=== PATIENT | female | born 1945 | race Caucasian/White ===

== ENCOUNTER 2018-03-08 14:10 | Inpatient (IN) | payer MEDICARE, BC ==
[2018-03-08 15:03] LABS: ADD MAN DIFF? NO
[2018-03-08 15:12] LABS: BASOPHIL # 0.1 10^3/ul (0.0-0.1); BASOPHILS % 1.1 % (0.0-2.0); EOSINOPHILS # 0.1 10^3/ul (0.0-0.5); EOSINOPHILS % 1.2 % (0.0-7.0); HEMATOCRIT 38.3 % (37.0-47.0); HEMOGLOBIN 12.2 g/dl (12.0-16.0); LYMPHOCYTES % 12.5 % (15.0-51.0); MEAN CORPUSCULAR HEMOGLOBIN 29.8 pg (29.0-33.0); MEAN CORPUSCULAR HGB CONC 31.9 g/dl (32.0-37.0); MEAN CORPUSCULAR VOLUME 93.4 fl (82.0-101.0); MEAN PLATELET VOLUME 9.2 fl (7.4-10.4); MONOCYTE # 0.6 10^3/ul (0.3-0.9); MONOCYTES % 6.6 % (0.0-11.0); NEUTROPHIL # 6.5 10^3/ul (1.6-7.5); NEUTROPHILS % 78.4 % (39.0-77.0); PLATELET COUNT 269 10^3/UL (140-415); RED CELL DISTRIBUTION WIDTH 19.4 % (11.5-14.5)
[2018-03-08 15:12] LABS: WHITE BLOOD COUNT 8.3 10^3/ul (4.8-10.8)
[2018-03-08 15:28] LABS: INR 0.85; PARTIAL THROMBOPLASTIN TIME 31.4 Sec (23.0-35.0); PROTIME 11.7 Sec (11.9-14.9); PT RATIO 0.9
[2018-03-08 15:33] LABS: ALANINE AMINOTRANSFERASE < 6 IU/L (13-69); ALBUMIN 4.2 g/dl (3.3-4.9); ALBUMIN/GLOBULIN RATIO 1.31; ALKALINE PHOSPHATASE 59 IU/L (42-121); ANION GAP 16 (5-13); ASPARTATE AMINO TRANSFERASE 22 IU/L (15-46); BILIRUBIN,INDIRECT 0.5 mg/dl (0-1.1); BILIRUBIN,TOTAL 0.5 mg/dl (0.2-1.3); BLOOD UREA NITROGEN 25 mg/dl (7-20); CALCIUM 9.1 mg/dl (8.4-10.2); CARBON DIOXIDE 27 mmol/L (21-31); CHLORIDE 98 mmol/L (97-110); CREATININE 6.39 mg/dl (0.44-1.00); GLUCOSE 255 mg/dl (70-220); POTASSIUM 4.6 mmol/L (3.5-5.1); SODIUM 141 mmol/L (135-144); TOTAL PROTEIN 7.4 g/dl (6.1-8.1)
[2018-03-08 15:44] LABS: TROPONIN-I < 0.012 ng/ml (0.000-0.120)
[2018-03-08] MEDS ORDERED: ACETAMINOPHEN 325 MG TAB PO (16:00)
[2018-03-08] MEDS ORDERED: ONDANSETRON 4 MG INJ IV ×2 (16:00→17:00)
[2018-03-08] MEDS ORDERED: ZOLPIDEM 5 MG TAB PO (17:00)
[2018-03-08] MEDS ORDERED: NACL 0.9% 3 ML SYG IV (17:00)
[2018-03-08] MEDS ORDERED: GLUCAGON 1 MG INJ IM (17:00)
[2018-03-08] MEDS ORDERED: DOCUSATE SODIUM 100 MG CAP PO (17:00)
[2018-03-08] MEDS ORDERED: GLUCOSE GEL 15 GRAM TUBE PO ×2 (17:00)
[2018-03-08] MEDS ORDERED: HYDROCODONE/APAP (5/325) TAB PO (17:00)
[2018-03-08] MEDS ORDERED: morphine 2 MG INJ IV (17:00)
[2018-03-08] MEDS ORDERED: DEXTROSE 50% 50 ML SYRINGE IV ×2 (17:00)
[2018-03-08] MEDS ORDERED: ALBUTEROL/IPRATROPIUM (NEB) 3 ML AMP HHN (17:30)
[2018-03-08] MEDS: INSULIN ASPART [NOVOLOG] 3 ML PEN SC ×2 (17:54→21:00)
[2018-03-08 18:12] LABS: HEPATITIS B SURFACE ANTIGEN NEGATIVE (NEGATIVE)
[2018-03-08 18:30] LABS: HEPATITIS B SURFACE ANTIBODY POSITIVE (NEGATIVE)
[2018-03-08] MEDS: LIDOCAINE 5% 35 GM OINT TOP (20:46)
[2018-03-08] MEDS: INSULIN GLARGINE [LANTus] (100 UNITS/ML) SYG SC (20:47)
[2018-03-08] MEDS: ATORVASTATIN 80 MG TAB PO (21:00)
[2018-03-09] MEDS: ACCU-CHEK XX (01:56)
[2018-03-09 05:25] LABS: ADD MAN DIFF? NO
[2018-03-09 05:39] LABS: WHITE BLOOD COUNT 7.6 10^3/ul (4.8-10.8)
[2018-03-09 05:39] LABS: BASOPHIL # 0.1 10^3/ul (0.0-0.1); BASOPHILS % 0.8 % (0.0-2.0); EOSINOPHILS # 0.1 10^3/ul (0.0-0.5); EOSINOPHILS % 1.7 % (0.0-7.0); HEMATOCRIT 34.1 % (37.0-47.0); LYMPHOCYTES # 1.2 10^3/ul (0.8-2.9); LYMPHOCYTES % 15.8 % (15.0-51.0); MEAN CORPUSCULAR HEMOGLOBIN 29.9 pg (29.0-33.0); MEAN CORPUSCULAR HGB CONC 32.3 g/dl (32.0-37.0); MEAN CORPUSCULAR VOLUME 92.7 fl (82.0-101.0); MEAN PLATELET VOLUME 9.6 fl (7.4-10.4); MONOCYTE # 0.7 10^3/ul (0.3-0.9); NEUTROPHIL # 5.5 10^3/ul (1.6-7.5); NEUTROPHILS % 72.4 % (39.0-77.0); PLATELET COUNT 254 10^3/UL (140-415); RED BLOOD COUNT 3.68 10^6/ul (4.20-5.40); RED CELL DISTRIBUTION WIDTH 18.7 % (11.5-14.5)
[2018-03-09 06:04] LABS: ANION GAP 13 (5-13); BLOOD UREA NITROGEN 8 mg/dl (7-20); CALCIUM 8.2 mg/dl (8.4-10.2); CARBON DIOXIDE 31 mmol/L (21-31); CHLORIDE 98 mmol/L (97-110); CREATININE 2.94 mg/dl (0.44-1.00); GLUCOSE 112 mg/dl (70-220); MAGNESIUM 1.9 mg/dl (1.7-2.5); POTASSIUM 4.1 mmol/L (3.5-5.1); SODIUM 142 mmol/L (135-144)
[2018-03-09 07:47] LABS: HEMOGLOBIN A1C 6.9 % (0-5.9)
[2018-03-09] MEDS: INSULIN ASPART [NOVOLOG] 3 ML PEN SC ×4 (08:00→20:52)
[2018-03-09] MEDS: ASPIRIN (EC) 81 MG TAB PO (08:40)
[2018-03-09] MEDS: ATENOLOL 50 MG TAB PO (08:40)
[2018-03-09] MEDS: LOSARTAN 50 MG TAB PO (08:40)
[2018-03-09] MEDS: AMLODIPINE 10 MG TAB PO (08:41)
[2018-03-09] MEDS: ACETAMINOPHEN 325 MG TAB PO (19:51)
[2018-03-09] MEDS: ATORVASTATIN 80 MG TAB PO (21:00)
[2018-03-09] MEDS: INSULIN GLARGINE [LANTus] (100 UNITS/ML) SYG SC (21:02)
[2018-03-10] MEDS: ACCU-CHEK XX (01:21)
[2018-03-10 05:46] LABS: WHITE BLOOD COUNT 9.3 10^3/ul (4.8-10.8)
[2018-03-10 05:46] LABS: ADD MAN DIFF? NO; BASOPHIL # 0.1 10^3/ul (0.0-0.1); BASOPHILS % 0.6 % (0.0-2.0); EOSINOPHILS # 0.2 10^3/ul (0.0-0.5); EOSINOPHILS % 2.4 % (0.0-7.0); HEMATOCRIT 36.9 % (37.0-47.0); HEMOGLOBIN 11.9 g/dl (12.0-16.0); LYMPHOCYTES # 1.1 10^3/ul (0.8-2.9); LYMPHOCYTES % 11.8 % (15.0-51.0); MEAN CORPUSCULAR HEMOGLOBIN 29.8 pg (29.0-33.0); MEAN CORPUSCULAR HGB CONC 32.2 g/dl (32.0-37.0); MEAN CORPUSCULAR VOLUME 92.3 fl (82.0-101.0); MONOCYTE # 0.7 10^3/ul (0.3-0.9); MONOCYTES % 7.9 % (0.0-11.0); NEUTROPHIL # 7.1 10^3/ul (1.6-7.5); PLATELET COUNT 268 10^3/UL (140-415); RED CELL DISTRIBUTION WIDTH 18.2 % (11.5-14.5)
[2018-03-10 06:24] LABS: ANION GAP 8 (5-13); BLOOD UREA NITROGEN 9 mg/dl (7-20); CALCIUM 8.2 mg/dl (8.4-10.2); CARBON DIOXIDE 32 mmol/L (21-31); CHLORIDE 97 mmol/L (97-110); CREATININE 2.91 mg/dl (0.44-1.00); GLUCOSE 171 mg/dl (70-220); MAGNESIUM 1.8 mg/dl (1.7-2.5); PHOSPHORUS 1.8 mg/dl (2.5-4.9); POTASSIUM 3.8 mmol/L (3.5-5.1); SODIUM 137 mmol/L (135-144)
[2018-03-10] MEDS: INSULIN ASPART [NOVOLOG] 3 ML PEN SC ×4 (08:00→20:57)
[2018-03-10] MEDS: LOSARTAN 50 MG TAB PO (09:42)
[2018-03-10] MEDS: ATENOLOL 50 MG TAB PO (09:42)
[2018-03-10] MEDS: ASPIRIN (EC) 81 MG TAB PO (09:43)
[2018-03-10] MEDS: AMLODIPINE 10 MG TAB PO (09:43)
[2018-03-10] MEDS ORDERED: LIDOCAINE 1% (MPF) 5 ML VIAL INJ (11:30)
[2018-03-10] MEDS: GLUCOSE GEL 15 GRAM TUBE BUCCAL (12:03)
[2018-03-10] MEDS: LIDOCAINE 5% 35 GM OINT TOP (13:30)
[2018-03-10] MEDS ORDERED: HEPARIN 5,000 UNIT/0.5 ML VIAL ×2 (16:35→20:12)
[2018-03-10] MEDS: HEPARIN 5,000 UNIT/1 ML VIAL SC ×2 (16:43→20:57)
[2018-03-10] MEDS: ATORVASTATIN 80 MG TAB PO (20:54)
[2018-03-11] MEDS: ACCU-CHEK XX (02:21)
[2018-03-11] MEDS ORDERED: HEPARIN 5,000 UNIT/0.5 ML VIAL (08:04)
[2018-03-11] MEDS: ATENOLOL 50 MG TAB PO (08:09)
[2018-03-11] MEDS: INSULIN ASPART [NOVOLOG] 3 ML PEN SC (08:10)
[2018-03-11] MEDS: HEPARIN 5,000 UNIT/1 ML VIAL SC (08:11)
[2018-03-11] MEDS: ASPIRIN (EC) 81 MG TAB PO (08:11)
[2018-03-11] MEDS: AMLODIPINE 10 MG TAB PO (08:11)
[2018-03-11] MEDS: LOSARTAN 50 MG TAB PO (08:12)
== END 2018-03-11 11:52 | disposition home or self-care (01) | DRG 189 ==
LOC: E/R 14:10 → 6WM 15:45
PROVIDERS: Internal Medicine
PROC: 5A1D70Z Performance of Urinary Filtration, Intermittent, Less than 6 Hours Per Day (ICD-10-PCS; 2018-03-08)
PROC: 5A1D70Z Performance of Urinary Filtration, Intermittent, Less than 6 Hours Per Day (ICD-10-PCS; 2018-03-09)
PROC: 5A1D70Z Performance of Urinary Filtration, Intermittent, Less than 6 Hours Per Day (ICD-10-PCS; principal; 2018-03-11)
DX: J81.0 Acute pulmonary edema (principal); N18.6 End stage renal disease; G92 Toxic encephalopathy; I12.0 Hypertensive chronic kidney disease with stage 5 chronic kidney disease or end stage renal disease; Z94.0 Kidney transplant status; E11.22 Type 2 diabetes mellitus with diabetic chronic kidney disease; E78.5 Hyperlipidemia, unspecified; D63.1 Anemia in chronic kidney disease; Z79.4 Long term (current) use of insulin; Z99.2 Dependence on renal dialysis; Z91.15 Patient's noncompliance with renal dialysis
CPT/HCPCS: 71045; 80048; 80053; 82962; 83036; 83735; 84100; 84484; 85025; 85610; 85730; 86706; 87340; 90935; 93005; 99285-25